=== PATIENT | female | born 1950 | race African-American/Black ===

== ENCOUNTER → 2018-07-23 | Outpatient (CLI) | payer OTHER | LOC: LABMALL 09:02 | PROVIDERS: Family Medicine | DX: K57.32 Diverticulitis of large intestine without perforation or abscess without bleeding (principal); D25.9 Leiomyoma of uterus, unspecified; I10 Essential (primary) hypertension; Z88.8 Allergy status to other drugs, medicaments and biological substances; Z79.899 Other long term (current) drug therapy ==

== ENCOUNTER → 2019-08-17 | Outpatient (CLI) | payer OTHER, BC | LOC: RAD 08:27 | DX: R13.10 Dysphagia, unspecified (principal) ==